=== PATIENT | female | born 1955 | race Caucasian/White ===

== ENCOUNTER 2016-04-18 10:17 | Outpatient (CLI) | END 2016-04-18 10:18 | disposition home or self-care (01) ==

== ENCOUNTER 2016-04-26 11:02 | Outpatient (CLI) | payer BC | END 2016-04-26 11:03 | disposition home or self-care (01) | DX: C54.1 Malignant neoplasm of endometrium (principal) ==

== ENCOUNTER 2016-04-29 | Outpatient (CLI) | payer BC, MEDICAID | END 2016-04-29 10:38 | disposition critical access hospital (66) | CPT/HCPCS: A0425; A0429 ==

== ENCOUNTER 2016-04-29 11:11 | Inpatient (IN) | payer BC, MEDICAID ==
[2016-04-29] MEDS ORDERED: MORPHINE 2 MG/ML SYRINGE IVP STA (12:46)
[2016-04-29] MEDS ORDERED: MORPHINE 2 MG/ML SYRINGE ONE (13:07)
[2016-04-29] MEDS ORDERED: ONDANSETRON 4 MG/2 ML VIAL ONE (13:13)
[2016-04-29] MEDS ORDERED: ONDANSETRON 4 MG/2 ML VIAL IVP STA (13:13)
[2016-04-29] MEDS ORDERED: IOPAMIDOL-300 100 ML VIAL IVP ONE (15:12)
[2016-04-29] MEDS ORDERED: LORazepam 2 MG/ML SYRINGE IVP STA (16:14)
[2016-04-29] MEDS ORDERED: LORazepam 2 MG/ML SYRINGE ONE (16:18)
[2016-04-29] MEDS ORDERED: AZITHROMYCIN INJ 500 MG in SODIUM CHLORIDE 0.9% 250 ML IV STA (17:00)
[2016-04-29] MEDS ORDERED: cefTRIAXone 1 GM in SODIUM CHLORIDE 0.9% MINIBAG 100 ML IV STA (17:00)
[2016-04-29] MEDS ORDERED: LIDOCAINE/PRILOCAINE 2.5% CREAM 5 GM TUBE TOP PRN (17:02)
[2016-04-29] MEDS ORDERED: PROCHLORPERAZINE 10 MG/2 ML VIAL IVP PRN (17:04)
[2016-04-29] MEDS ORDERED: IBUPROFEN 600 MG TABLET PO PRN (17:04)
[2016-04-29] MEDS ORDERED: LORazepam 1 MG/0.5 ML ORAL SYRINGE PO PRN (17:04)
[2016-04-29] MEDS ORDERED: SODIUM CHLORIDE FLUSH 0.9% 10 ML SYRINGE IVP PRN (17:04)
[2016-04-29] MEDS ORDERED: ACETAMINOPHEN 325 MG TABLET PO PRN (17:04)
[2016-04-29] MEDS ORDERED: cefTRIAXone 1 GM VIAL ONE (17:13)
[2016-04-29] MEDS ORDERED: ACETAMINOPHEN 160 MG/5 ML SUSP UDC PO PRN (17:53)
[2016-04-29] MEDS ORDERED: IBUPROFEN 100 MG/5 ML UDC PO PRN (17:55)
[2016-04-29] MEDS ORDERED: AZITHROMYCIN INJ 500 MG in SODIUM CHLORIDE 0.9% 250 ML IV SCH (18:00)
[2016-04-29] MEDS: SODIUM CHLORIDE 0.9% 1,000 ML IV SCH (20:02)
[2016-04-29] MEDS ORDERED: diphenhydrAMINE INJ 50 MG/ML VIAL IVP PRN (20:05)
[2016-04-29] MEDS ORDERED: LORazepam 0.5 MG TABLET PO PRN (20:55)
[2016-04-29] MEDS: FUROSEMIDE 40 MG/4 ML VIAL IVP SCH (21:02)
[2016-04-29] MEDS: SODIUM CHLORIDE FLUSH 0.9% 10 ML SYRINGE IVP SCH (21:02)
[2016-04-29] MEDS: ONDANSETRON ODT 4 MG TABLET TL PRN (21:03)
[2016-04-29] MEDS: MORPHINE SOL 10 MG/0.5 ML SYRINGE PO PRN (21:04)
[2016-04-29] MEDS ORDERED: POTASSIUM CHLORIDE INJ 40 MEQ in SODIUM CHLORIDE 0.9% 480 ML IV SCH (23:08)
[2016-04-30] MEDS: POTASSIUM CHLOR 10 MEQ/100 ML 100 ML IV SCH ×4 (01:39→05:08)
[2016-04-30] MEDS: LORazepam 2 MG/ML SYRINGE IVP PRN (05:16)
[2016-04-30] MEDS: SODIUM CHLORIDE 0.9% 1,000 ML IV SCH ×4 (05:25→23:53)
[2016-04-30] MEDS: SODIUM CHLORIDE FLUSH 0.9% 10 ML SYRINGE IVP SCH ×3 (06:25→19:09)
[2016-04-30] MEDS: FUROSEMIDE 40 MG/4 ML VIAL IVP SCH ×2 (06:28→14:38)
[2016-04-30] MEDS ORDERED: POTASSIUM CHLORIDE 20 MEQ TABLET PO SCH (08:00)
[2016-04-30] MEDS: ONDANSETRON ODT 4 MG TABLET TL PRN ×2 (08:45→17:00)
[2016-04-30] MEDS: FAMOTIDINE 20 MG/50 ML 50 ML IV SCH (08:50)
[2016-04-30] MEDS: ENOXAPARIN 40 MG/0.4 ML SYRINGE SUBQ SCH (08:50)
[2016-04-30] MEDS: POLYETHYLENE GLYCOL 3350 17 GM PACKET PO SCH (08:50)
[2016-04-30] MEDS ORDERED: cefTRIAXone 2 GM in SODIUM CHLORIDE 0.9% MINIBAG 100 ML IV SCH (09:00)
[2016-04-30] MEDS: MORPHINE SOL 10 MG/0.5 ML SYRINGE PO PRN ×2 (09:50→17:05)
[2016-04-30] MEDS: cefTRIAXone 2 GM in SODIUM CHLORIDE 0.9% MINIBAG 100 ML IV SCH (10:06)
[2016-04-30] MEDS: AZITHROMYCIN INJ 500 MG in SODIUM CHLORIDE 0.9% 250 ML IV SCH (13:19)
[2016-05-01] MEDS: MORPHINE SOL 10 MG/0.5 ML SYRINGE PO PRN ×3 (00:05→22:59)
[2016-05-01] MEDS: ONDANSETRON ODT 4 MG TABLET TL PRN ×3 (00:08→22:40)
[2016-05-01] MEDS: SODIUM CHLORIDE FLUSH 0.9% 10 ML SYRINGE IVP SCH ×3 (06:22→20:43)
[2016-05-01] MEDS: FUROSEMIDE 40 MG/4 ML VIAL IVP SCH ×2 (06:24→14:20)
[2016-05-01] MEDS: FAMOTIDINE 20 MG/50 ML 50 ML IV SCH (08:27)
[2016-05-01] MEDS ORDERED: SENNA 8.6 MG TABLET PO SCH (09:00)
[2016-05-01] MEDS: cefTRIAXone 2 GM in SODIUM CHLORIDE 0.9% MINIBAG 100 ML IV SCH (09:22)
[2016-05-01] MEDS: DOCUSATE SODIUM 250 MG CAPSULE PO SCH ×2 (09:22→15:08)
[2016-05-01] MEDS: ENOXAPARIN 40 MG/0.4 ML SYRINGE SUBQ SCH (09:26)
[2016-05-01] MEDS: POLYETHYLENE GLYCOL 3350 17 GM PACKET PO SCH ×2 (09:27→15:09)
[2016-05-01] MEDS: SODIUM CHLORIDE 0.9% 1,000 ML IV SCH ×2 (09:28→21:06)
[2016-05-01] MEDS: AZITHROMYCIN INJ 500 MG in SODIUM CHLORIDE 0.9% 250 ML IV SCH (10:20)
[2016-05-01] MEDS: diphenhydrAMINE ELIXIR 25 MG/10 ML UDC PO SCH ×3 (14:20→21:14)
[2016-05-01] MEDS: POTASSIUM CHLORIDE 20 MEQ/15 ML UDC PO SCH (16:43)
[2016-05-01] MEDS: POTASSIUM CHLOR 10 MEQ/100 ML 100 ML IV SCH ×6 (19:23→23:52)
[2016-05-02] MEDS: SODIUM CHLORIDE FLUSH 0.9% 10 ML SYRINGE IVP SCH ×3 (01:14→20:16)
[2016-05-02] MEDS: ONDANSETRON ODT 4 MG TABLET TL PRN ×4 (04:26→20:16)
[2016-05-02] MEDS: MORPHINE SOL 10 MG/0.5 ML SYRINGE PO PRN ×3 (04:50→22:03)
[2016-05-02] MEDS: FUROSEMIDE 40 MG/4 ML VIAL IVP SCH ×2 (06:21→13:24)
[2016-05-02] MEDS: SODIUM CHLORIDE 0.9% 1,000 ML IV SCH (06:22)
[2016-05-02] MEDS: ENOXAPARIN 40 MG/0.4 ML SYRINGE SUBQ SCH (07:37)
[2016-05-02] MEDS: FAMOTIDINE 20 MG/50 ML 50 ML IV SCH (08:06)
[2016-05-02] MEDS: cefTRIAXone 2 GM in SODIUM CHLORIDE 0.9% MINIBAG 100 ML IV SCH (08:37)
[2016-05-02] MEDS: diphenhydrAMINE ELIXIR 25 MG/10 ML UDC PO SCH ×4 (09:49→20:16)
[2016-05-02] MEDS: AZITHROMYCIN INJ 500 MG in SODIUM CHLORIDE 0.9% 250 ML IV SCH (09:50)
[2016-05-02] MEDS: POTASSIUM CHLORIDE 20 MEQ/15 ML UDC PO SCH (10:04)
[2016-05-02] MEDS: POLYETHYLENE GLYCOL 3350 17 GM PACKET PO SCH (13:28)
[2016-05-02] MEDS: DOCUSATE SODIUM 250 MG CAPSULE PO SCH (13:28)
[2016-05-02] MEDS: POTASSIUM CHLOR 10 MEQ/100 ML 100 ML IV SCH ×6 (16:11→23:43)
[2016-05-02] MEDS: LORazepam 2 MG/ML SYRINGE IVP PRN (22:33)
[2016-05-03] MEDS: POTASSIUM CHLOR 10 MEQ/100 ML 100 ML IV SCH ×2 (00:47→01:53)
[2016-05-03] MEDS: SODIUM CHLORIDE FLUSH 0.9% 10 ML SYRINGE IVP SCH ×3 (01:19→21:18)
[2016-05-03] MEDS ORDERED: POTASSIUM CHLOR 10 MEQ/100 ML 100 ML IV ONE (01:51)
[2016-05-03] MEDS: SODIUM CHLORIDE 0.9% 1,000 ML IV SCH ×4 (02:02→18:15)
[2016-05-03] MEDS: MORPHINE SOL 10 MG/0.5 ML SYRINGE PO PRN (05:35)
[2016-05-03] MEDS: ONDANSETRON ODT 4 MG TABLET TL PRN ×4 (05:36→23:53)
[2016-05-03] MEDS: FUROSEMIDE 40 MG/4 ML VIAL IVP SCH ×2 (05:57→14:56)
[2016-05-03] MEDS: FAMOTIDINE 20 MG/50 ML 50 ML IV SCH (08:13)
[2016-05-03] MEDS: cefTRIAXone 2 GM in SODIUM CHLORIDE 0.9% MINIBAG 100 ML IV SCH (09:17)
[2016-05-03] MEDS: POTASSIUM CHLORIDE 20 MEQ/15 ML UDC PO SCH (09:49)
[2016-05-03] MEDS: POLYETHYLENE GLYCOL 3350 17 GM PACKET PO SCH (09:50)
[2016-05-03] MEDS: DOCUSATE SODIUM 250 MG CAPSULE PO SCH (09:50)
[2016-05-03] MEDS: SENNA 8.6 MG TABLET PO SCH (09:50)
[2016-05-03] MEDS: diphenhydrAMINE ELIXIR 25 MG/10 ML UDC PO SCH ×4 (09:51→20:56)
[2016-05-03] MEDS: AZITHROMYCIN INJ 500 MG in SODIUM CHLORIDE 0.9% 250 ML IV SCH (09:57)
[2016-05-03] MEDS: ENOXAPARIN 40 MG/0.4 ML SYRINGE SUBQ SCH (09:58)
[2016-05-03] MEDS: POTASS CIT/CITRIC ACID ORAL 1 EACH PACKET PO SCH ×4 (10:40→20:56)
[2016-05-03] MEDS ORDERED: BISACODYL 10 MG SUPP PR ONE ×2 (12:45→19:00)
[2016-05-03] MEDS ORDERED: ALBUTEROL NEB 2.5 MG/3 ML INH PRN (18:15)
[2016-05-03] MEDS ORDERED: FUROSEMIDE 20 MG/2 ML VIAL IVP SCH (19:00)
[2016-05-03] MEDS: LORazepam 2 MG/ML SYRINGE IVP PRN (20:43)
[2016-05-03] MEDS: MAGNESIUM SULFATE 2 GRAM 50 ML IV SCH ×2 (21:13→22:19)
[2016-05-03] MEDS: MAG HYDROX/AL HYDROX/SIMETH 30 ML UDC PO PRN (21:13)
[2016-05-03] MEDS: POTASSIUM CHLOR 20 MEQ/100 ML 100 ML IV SCH (22:19)
[2016-05-04] MEDS: POTASSIUM CHLOR 20 MEQ/100 ML 100 ML IV SCH ×6 (00:01→17:53)
[2016-05-04] MEDS: MORPHINE SOL 10 MG/0.5 ML SYRINGE PO PRN ×3 (00:08→22:31)
[2016-05-04] MEDS: SODIUM CHLORIDE FLUSH 0.9% 10 ML SYRINGE IVP SCH ×4 (03:53→23:33)
[2016-05-04] MEDS ORDERED: MAGNESIUM SULFATE 2 GRAM 50 ML IV SCH (04:00)
[2016-05-04] MEDS: POTASSIUM CHLOR 10 MEQ/100 ML 100 ML IV SCH ×8 (04:46→21:20)
[2016-05-04] MEDS: ONDANSETRON ODT 4 MG TABLET TL PRN ×2 (06:42→11:05)
[2016-05-04] MEDS: POLYETHYLENE GLYCOL 3350 17 GM PACKET PO SCH (08:40)
[2016-05-04] MEDS: ENOXAPARIN 40 MG/0.4 ML SYRINGE SUBQ SCH (08:41)
[2016-05-04] MEDS: DOCUSATE SODIUM 250 MG CAPSULE PO SCH (08:44)
[2016-05-04] MEDS: diphenhydrAMINE ELIXIR 25 MG/10 ML UDC PO SCH ×4 (08:44→21:19)
[2016-05-04] MEDS: SENNA 8.6 MG TABLET PO SCH (08:45)
[2016-05-04] MEDS: FAMOTIDINE 20 MG/50 ML 50 ML IV SCH (09:29)
[2016-05-04] MEDS: cefTRIAXone 2 GM in SODIUM CHLORIDE 0.9% MINIBAG 100 ML IV SCH (10:22)
[2016-05-04] MEDS: AZITHROMYCIN INJ 500 MG in SODIUM CHLORIDE 0.9% 250 ML IV SCH (11:05)
[2016-05-04] MEDS: POTASS CIT/CITRIC ACID ORAL 1 EACH PACKET PO SCH ×4 (11:10→21:19)
[2016-05-04] MEDS: POTASSIUM CHLORIDE 20 MEQ/15 ML UDC PO SCH (11:12)
[2016-05-04] MEDS: MAG HYDROX/AL HYDROX/SIMETH 30 ML UDC PO PRN (17:49)
[2016-05-04] MEDS: SODIUM CHLORIDE 0.9% 1,000 ML IV SCH (21:19)
[2016-05-04] MEDS: ONDANSETRON 4 MG/2 ML VIAL IVP PRN (22:19)
[2016-05-05] MEDS: LORazepam 2 MG/ML SYRINGE IVP PRN (01:17)
[2016-05-05] MEDS ORDERED: LORazepam 2 MG/ML SYRINGE IVP STA (01:34)
[2016-05-05] MEDS: IPRATROPIUM/ALBUTEROL 3 ML NEB INH PRN ×2 (01:35→10:00)
[2016-05-05] MEDS ORDERED: LORazepam 2 MG/ML SYRINGE IVP SCH (01:55)
[2016-05-05] MEDS: ENOXAPARIN 40 MG/0.4 ML SYRINGE SUBQ SCH (07:16)
[2016-05-05] MEDS: DOCUSATE SODIUM 250 MG CAPSULE PO SCH (08:43)
[2016-05-05] MEDS: SENNA 8.6 MG TABLET PO SCH (08:43)
[2016-05-05] MEDS: POLYETHYLENE GLYCOL 3350 17 GM PACKET PO SCH (08:43)
[2016-05-05] MEDS: diphenhydrAMINE ELIXIR 25 MG/10 ML UDC PO SCH ×4 (08:44→20:05)
[2016-05-05] MEDS: ONDANSETRON 4 MG/2 ML VIAL IVP PRN (08:54)
[2016-05-05] MEDS: FAMOTIDINE 20 MG/50 ML 50 ML IV SCH (08:55)
[2016-05-05] MEDS: cefTRIAXone 2 GM in SODIUM CHLORIDE 0.9% MINIBAG 100 ML IV SCH (09:52)
[2016-05-05] MEDS: AZITHROMYCIN INJ 500 MG in SODIUM CHLORIDE 0.9% 250 ML IV SCH (10:22)
[2016-05-05] MEDS: MAG HYDROX/AL HYDROX/SIMETH 30 ML UDC PO PRN (10:22)
[2016-05-05] MEDS: METOCLOPRAMIDE 10 MG/2 ML VIAL IVP PRN ×3 (11:20→23:39)
[2016-05-05] MEDS: POTASS CIT/CITRIC ACID ORAL 1 EACH PACKET PO SCH ×4 (13:03→20:07)
[2016-05-05] MEDS: SODIUM CHLORIDE FLUSH 0.9% 10 ML SYRINGE IVP SCH ×2 (13:47→20:07)
[2016-05-05] MEDS: MORPHINE SOL 10 MG/0.5 ML SYRINGE PO PRN ×2 (18:33→23:43)
[2016-05-05] MEDS: SODIUM CHLORIDE 0.9% 1,000 ML IV SCH (18:34)
[2016-05-06] MEDS: IPRATROPIUM/ALBUTEROL 3 ML NEB INH PRN ×2 (04:43→22:23)
[2016-05-06] MEDS: SODIUM CHLORIDE FLUSH 0.9% 10 ML SYRINGE IVP SCH ×3 (05:34→16:48)
[2016-05-06] MEDS: METOCLOPRAMIDE 10 MG/2 ML VIAL IVP PRN ×3 (07:35→20:18)
[2016-05-06] MEDS: FAMOTIDINE 20 MG/50 ML 50 ML IV SCH (09:22)
[2016-05-06] MEDS: DOCUSATE SODIUM 250 MG CAPSULE PO SCH (09:37)
[2016-05-06] MEDS: SENNA 8.6 MG TABLET PO SCH (09:37)
[2016-05-06] MEDS: cefTRIAXone 2 GM in SODIUM CHLORIDE 0.9% MINIBAG 100 ML IV SCH (10:04)
[2016-05-06] MEDS: ENOXAPARIN 40 MG/0.4 ML SYRINGE SUBQ SCH (10:04)
[2016-05-06] MEDS: MORPHINE SOL 10 MG/0.5 ML SYRINGE PO PRN ×2 (10:52→22:07)
[2016-05-06] MEDS: POTASS CIT/CITRIC ACID ORAL 1 EACH PACKET PO SCH ×4 (11:45→20:26)
[2016-05-06] MEDS: POLYETHYLENE GLYCOL 3350 17 GM PACKET PO SCH (11:45)
[2016-05-06] MEDS: diphenhydrAMINE ELIXIR 25 MG/10 ML UDC PO SCH ×4 (11:45→20:26)
[2016-05-06] MEDS: SODIUM CHLORIDE 0.9% 1,000 ML IV SCH (14:11)
[2016-05-06] MEDS: SIMETHICONE 125 MG PO PRN (20:19)
[2016-05-06] MEDS: LORazepam 2 MG/ML SYRINGE IVP PRN (22:08)
[2016-05-07] MEDS: SODIUM CHLORIDE 0.9% 1,000 ML IV SCH ×2 (03:26→06:04)
[2016-05-07] MEDS: LORazepam 2 MG/ML SYRINGE IVP PRN ×2 (03:32→21:45)
[2016-05-07] MEDS: SODIUM CHLORIDE FLUSH 0.9% 10 ML SYRINGE IVP SCH ×3 (06:01→21:53)
[2016-05-07] MEDS ORDERED: SODIUM CHLORIDE FLUSH 0.9% 10 ML SYRINGE IVP PRN (06:27)
[2016-05-07] MEDS: METOCLOPRAMIDE 10 MG/2 ML VIAL IVP PRN ×3 (06:39→21:47)
[2016-05-07] MEDS: diphenhydrAMINE ELIXIR 25 MG/10 ML UDC PO SCH ×4 (08:01→21:46)
[2016-05-07] MEDS: DOCUSATE SODIUM 250 MG CAPSULE PO SCH (08:01)
[2016-05-07] MEDS: SENNA 8.6 MG TABLET PO SCH (08:01)
[2016-05-07] MEDS: POTASS CIT/CITRIC ACID ORAL 1 EACH PACKET PO SCH ×4 (08:01→21:53)
[2016-05-07] MEDS ORDERED: POTASSIUM CHLORIDE 20 MEQ TABLET PO ONE (08:45)
[2016-05-07] MEDS ORDERED: MAGNESIUM OXIDE 400 MG TABLET PO ONE (09:00)
[2016-05-07] MEDS: FAMOTIDINE 20 MG/50 ML 50 ML IV SCH (09:02)
[2016-05-07] MEDS: SIMETHICONE 125 MG PO PRN ×3 (09:05→21:48)
[2016-05-07] MEDS: cefTRIAXone 2 GM in SODIUM CHLORIDE 0.9% MINIBAG 100 ML IV SCH (10:18)
[2016-05-07] MEDS: ENOXAPARIN 40 MG/0.4 ML SYRINGE SUBQ SCH (10:19)
[2016-05-07] MEDS: IPRATROPIUM/ALBUTEROL 3 ML NEB INH PRN (10:35)
[2016-05-07] MEDS: POLYETHYLENE GLYCOL 3350 17 GM PACKET PO SCH (12:19)
[2016-05-07] MEDS: ONDANSETRON 4 MG/2 ML VIAL IVP PRN ×2 (12:19→16:30)
[2016-05-07] MEDS: MORPHINE SOL 10 MG/0.5 ML SYRINGE PO PRN ×2 (16:21→21:46)
[2016-05-08] MEDS: SODIUM CHLORIDE 0.9% 1,000 ML IV SCH (02:58)
[2016-05-08] MEDS: METOCLOPRAMIDE 10 MG/2 ML VIAL IVP PRN (06:11)
[2016-05-08] MEDS: SODIUM CHLORIDE FLUSH 0.9% 10 ML SYRINGE IVP SCH ×3 (06:12→13:52)
[2016-05-08] MEDS ORDERED: BISACODYL 10 MG SUPP PR PRN (06:45)
[2016-05-08] MEDS: ONDANSETRON 4 MG/2 ML VIAL IVP PRN (08:07)
[2016-05-08] MEDS: FAMOTIDINE 20 MG/50 ML 50 ML IV SCH (08:13)
[2016-05-08] MEDS: diphenhydrAMINE ELIXIR 25 MG/10 ML UDC PO SCH ×2 (10:35→14:02)
[2016-05-08] MEDS: POTASS CIT/CITRIC ACID ORAL 1 EACH PACKET PO SCH ×2 (10:36→11:56)
[2016-05-08] MEDS: SENNA 8.6 MG TABLET PO SCH (10:36)
[2016-05-08] MEDS: DOCUSATE SODIUM 250 MG CAPSULE PO SCH (10:36)
[2016-05-08] MEDS: POLYETHYLENE GLYCOL 3350 17 GM PACKET PO SCH (10:37)
[2016-05-08] MEDS: ENOXAPARIN 40 MG/0.4 ML SYRINGE SUBQ SCH (10:39)
[2016-05-08] MEDS: SIMETHICONE 125 MG PO PRN (10:40)
[2016-05-08] MEDS ORDERED: LORazepam 1 MG/0.5 ML ORAL SYRINGE PO PRN (10:42)
[2016-05-08] MEDS ORDERED: MORPHINE SOL 10 MG/0.5 ML SYRINGE PO PRN (10:42)
[2016-05-08] MEDS ORDERED: MORPHINE 10 MG/ML VIAL IVP ONE (11:00)
[2016-05-08] MEDS ORDERED: LORazepam 2 MG/ML SYRINGE IVP ONE (11:30)
[2016-05-08] MEDS: MORPHINE SOL 10 MG/0.5 ML SYRINGE PO PRN (15:40)
== END 2016-05-08 16:00 | disposition home health service (06) | DRG 193 ==
DX: J18.9 Pneumonia, unspecified organism (principal); D61.810 Antineoplastic chemotherapy induced pancytopenia; C78.6 Secondary malignant neoplasm of retroperitoneum and peritoneum; R18.0 Malignant ascites; Z68.42 Body mass index [BMI] 45.0-49.9, adult; E86.0 Dehydration; E87.6 Hypokalemia; R62.7 Adult failure to thrive; C54.1 Malignant neoplasm of endometrium; R59.0 Localized enlarged lymph nodes; R11.2 Nausea with vomiting, unspecified; T50.3X5A Adverse effect of electrolytic, caloric and water-balance agents, initial encounter; Y92.239 Unspecified place in hospital as the place of occurrence of the external cause; E66.01 Morbid (severe) obesity due to excess calories; F42.9 Obsessive-compulsive disorder, unspecified; F41.8 Other specified anxiety disorders; K59.09 Other constipation; G62.9 Polyneuropathy, unspecified; T45.1X5A Adverse effect of antineoplastic and immunosuppressive drugs, initial encounter; Z66 Do not resuscitate; Z51.5 Encounter for palliative care

== ENCOUNTER 2016-08-06 15:30 | Outpatient (CLI) | payer MEDICAID | END 2016-08-06 15:31 | disposition home or self-care (01) | DX: J90 Pleural effusion, not elsewhere classified (principal); J98.4 Other disorders of lung ==

== ENCOUNTER 2016-09-11 14:35 | Outpatient (CLI) | payer MEDICAID ==
--- NOTE | 2016-09-11 16:35 | Ultrasound Report ---
RIGHT UPPER QUADRANT ULTRASOUND: 09/11/2016 CLINICAL INDICATION: Pain. COMPARISON: CT of 04/29/2016. TECHNIQUE: Real-time scanning was performed with membership sales representative static images obtained. FINDINGS: The liver measures 13.3 cm. Hepatic echogenicity is heterogeneous. Tiny cysts are noted. N o solid hepatic lesion or intrahepatic biliary dilatation is seen. The common bile duct measures 2 mm . The gallbladder demonstrates multiple shadowing stones. A small amount of ascites is noted. A right pleural effusion is incidentally noted. The right kidney measures 9.7 cm, and demonstrates no hydron ephrosis. IMPRESSION: CHOLELITHIASIS, WITHOUT EVIDENCE OF BILIARY OBSTRUCTION. HETEROGENEOUS HEPATIC ECHOGENIC ITY, LIKELY REPRESENTING FATTY INFILTRATION. ASCITES AND RIGHT PLEURAL EFFUSION. JOB #: [id number] EXT JOB #:[id number]
== END 2016-09-11 14:36 | disposition home or self-care (01) ==
LOC: DI 14:35
PROVIDERS: ATTEND Internal Medicine
DX: K80.20 Calculus of gallbladder without cholecystitis without obstruction (principal); R18.8 Other ascites; J90 Pleural effusion, not elsewhere classified
CPT/HCPCS: 76705

== ENCOUNTER 2016-09-24 06:59 | Outpatient (CLI) | payer MEDICAID | END 2016-09-24 07:00 | disposition EMS.NT | LOC: EMS 06:59 | PROVIDERS: ATTEND Surgery | DX: Z03.89 Encounter for observation for other suspected diseases and conditions ruled out (principal) ==

== ENCOUNTER 2016-10-15 03:20 | Outpatient (CLI) | payer MEDICAID | END 2016-10-15 03:21 | disposition critical access hospital (66) | DX: R53.1 Weakness (principal); R60.0 Localized edema; R10.11 Right upper quadrant pain | CPT/HCPCS: A0425; A0429 ==

== ENCOUNTER 2016-10-15 03:56 | Inpatient (IN) | payer MEDICAID ==
--- NOTE | 2016-10-15 04:27 | ED Physician Documentation ---
History of Present Illness - Stated complaint Stated Complaint: WEAKNESS, CA - Chief complaint Chief Complaint: Cardiac - History obtained from History obtained from: Patient, Family - History of Present Illness Timing: Today Improved by: no ameliorating factors Worsened by: no exacerbating factors - Additonal information Additional information: patient has metastatic ovarian CA. She presents with the chief complaint of generalized weakness which has been gradually worsening for several weeks but tonight she was unable to stand up out of her chair, even with assistance from her daughter (who has moved from [place] to care for this patient). Patient has several other c/o which are subacute but generally worsening (BLE edema, poor appetite, nausea with difficulty tolerating PO intake, abdominal distension, dyspnea). Review of Systems Constitutional: reports: Fatigue. denies: Fever Eyes: reports: Reviewed and negative Ears: reports: Reviewed and negative Nose: reports: Reviewed and negative Throat: reports: Reviewed and negative Cardiac: reports: Pedal edema. denies: Chest pain / pressure Respiratory: reports: Dyspnea. denies: Cough GI: reports: Abdominal Pain, Abdominal Swelling, Nausea, Vomiting, Constipation : denies: Dysuria, Frequency Skin: reports: Reviewed and negative Musculoskeletal: reports: Reviewed and negative Neurologic: reports: Generalized weakness. denies: Focal weakness, Numbness PD PAST MEDICAL HISTORY - Past Medical History Cardiovascular: None Respiratory: None Neuro: None Endocrine/Autoimmune: None GI: None, Ulcers, Chronic constipation QUALITY REP: Uterine cancer : Chronic bladder infection HEENT: Chronic vision loss Psych: Anxiety, Obsessive compulsive disorder Musculoskeletal: Other - Past Surgical History Past Surgical History: Yes /QUALITY REP: Dilation and currettage, Hysterectomy, Oophrectomy, Other - Present Medications Home Medications: Ambulatory Orders Medication Instructions Recorded Confirmed Morphine Sulfate [Morphine Sulfate 10 mg PO Q1H PRN #30 ml 05/08/16 10/15/16 Oral Solution (Roxanol)] Dextromethorphan Polistirex 30 mg ORAL BID PRN 10/15/16 10/15/16 [Delsym] Ibuprofen [Advil] 100 mg ORAL Q6H PRN 10/15/16 10/15/16 Loratadine [Claritin] 5 mg ORAL Q12H 10/15/16 10/15/16 Lorazepam [Lorazepam Intensol] 2 mg PO Q6H PRN 10/15/16 10/15/16 Simethicone [Gas-X] 125 mg ORAL TID 10/15/16 10/15/16 - Allergies Allergies/Adverse Reactions: Allergies Allergy/AdvReac Type Severity Reaction Status Date / Time Penicillins Allergy Unknown Verified 10/15/16 04:06 sulfamethoxazole Allergy Rash Verified 10/15/16 04:06 [From Bactrim] trimethoprim [From Bactrim] Allergy Rash Verified 10/15/16 04:06 dexamethasone sod phosphate * AdvReac Respiratory Verified 10/15/16 04:06 [From Decadron] nitrofurantoin AdvReac Headache Verified 10/15/16 04:06 macrocrystalline * [From Macrodantin] paclitaxel AdvReac Unknown Verified 10/15/16 04:06 Tetracyclines AdvReac Nausea Verified 10/15/16 04:06 - Social History Does the pt smoke?: No Smoking Status: Never smoker Does the pt drink ETOH?: No Does the pt have substance abuse?: No - Immunizations Immunizations are current?: Yes PD ED PE NORMAL - Vitals Vital signs reviewed: Yes - General General: Alert and oriented X 3, No acute distress, Well developed/nourished - HEENT HEENT: Moist mucous membranes - Neck Neck: Supple, no meningeal sign - Cardiac Cardiac: RRR, No murmur - Respiratory Respiratory: No respiratory distress, Other (bibasilar rales) - Abdomen Abdomen: Soft, Non tender - Derm Derm: Normal color, Warm and dry - Neuro Neuro: Alert and oriented X 3 PD ED PE EXPANDED - Abdomen Abdomen: Distended - Extremities Extremities: Pedal edema bilateral Results - Vitals Vitals: Vital Signs - 24 hr 10/15/16 10/15/16 03:58 05:40 Temperature 36.4 C L Heart Rate 105 H 103 H Respiratory 20 18 Rate Blood Pressure 144/95 H 106/83 H O2 Saturation 98 98 Oxygen O2 Source Room air - Labs Labs: Laboratory Tests 10/15/16 10/15/16 10/15/16 05:20 05:20 05:20 WBC 6.3 RBC 3.89 L Hgb 11.8 L Hct 34.7 L MCV 89.2 MCH 30.4 MCHC 34.1 RDW 18.1 H Plt Count 147 MPV 8.6 Neut # 4.3 Lymph # 0.4 L Pierce # 1.3 H Eos # 0.1 Baso # 0.1 Absolute Nucleated RBC 0.00 Nucleated RBCs 0.0 Sodium 136 Potassium 3.7 Chloride 99 L Carbon Dioxide 25 Anion Gap 12.0 BUN 52 H Creatinine 2.3 H Estimated GFR (MDRD) 22 L Glucose 96 Calcium 8.8 Total Bilirubin 0.8 AST 91 H ALT 36 Alkaline Phosphatase 116 B-Natriuretic Peptide 37 Total Protein 6.1 L Albumin 2.6 L Globulin 3.5 Albumin/Globulin Ratio 0.7 L Prealbumin Lipase 33 TSH 10/15/16 10/15/16 05:20 05:20 WBC RBC Hgb Hct MCV MCH MCHC RDW Plt Count MPV Neut # Lymph # Pierce # Eos # Baso # Absolute Nucleated RBC Nucleated RBCs Sodium Potassium Chloride Carbon Dioxide Anion Gap BUN Creatinine Estimated GFR (MDRD) Glucose Calcium Total Bilirubin AST ALT Alkaline Phosphatase B-Natriuretic Peptide Total Protein Albumin Globulin Albumin/Globulin Ratio Prealbumin 6 L Lipase TSH 4.52 - Rads (name of study) chest xray Radiology: Prelim report reviewed, See rad report PD MEDICAL DECISION MAKING - ED course Complexity details: reviewed old records, reviewed results, re-evaluated patient , considered differential, d/w patient, d/w family Departure - Departure Disposition: ED Place in Observation Clinical Impression: Muscle weakness, Abdominal bloating Condition: Stable Discharge Date/Time: 10/15/16 06:52
--- NOTE | 2016-10-15 05:39 | XRAY Preliminary Report ---
Exam: XR Chest 1 View IMPRESSION: 1. Mild pulmonary edema. 2. Moderate bibasilar effusions and atelectasis. 3. Mediastinal metastatic adenopathy. [facility] SITE ID: [id number]
--- NOTE | 2016-10-15 05:41 | XRAY Report ---
EXAM: CHEST RADIOGRAPHY EXAM DATE: 10/15/2016 05:19 AM. CLINICAL HISTORY: Dyspnea. COMPARISON: 08/06/2016, CT 04/29/2016. TECHNIQUE: 1 view. FINDINGS: Lungs/Pleura: Mild pulmonary edema with effusions and basilar atelectasis. Mediastinum: Mediastinal adenopathy present. Heart size obscured but likely normal as before. Other: None. IMPRESSION: 1. Mild pulmonary edema. 2. Moderate bibasilar effusions and atelectasis. 3. Mediastinal metastatic adenopathy. [facility] Referring Provider Line: [phone] SITE ID: [id number]
[2016-10-15 05:42] LABS: BASOPHILS # (AUTO) 0.1 10^3/uL (0.0-0.1); BASOPHILS % (AUTO) 1.8 %; EOSINOPHILS # (AUTO) 0.1 10^3/uL (0.0-0.7); EOSINOPHILS % (AUTO) 1.3 %; HCT - HEMATOCRIT 34.7 % (37.0-47.0); HGB - HEMOGLOBIN 11.8 g/dL (12.0-16.0); LYMPHOCYTES # (AUTO) 0.4 10^3/uL (1.5-3.5); LYMPHOCYTES % (AUTO) 5.9 %; MEAN CORPUSCULAR HEMOGLOBIN 30.4 pg (27.0-31.0); MEAN CORPUSCULAR HGB CONC 34.1 g/dL (32.0-36.0); MEAN CORPUSCULAR VOLUME 89.2 fL (81.0-99.0); MEAN PLATELET VOLUME 8.6 fL (7.9-10.8); MONOCYTES # (AUTO) 1.3 10^3/uL (0.0-1.0); MONOCYTES % (AUTO) 21.4 %; NEUTROPHILS # (AUTO) 4.3 10^3/uL (1.5-6.6); NEUTROPHILS % (AUTO) 69.6 %; RED BLOOD COUNT 3.89 10^6/uL (4.20-5.40); RED CELL DISTRIBUTION WIDTH 18.1 % (12.0-15.0); UNCORRECTED WHITE BLOOD COUNT 6.3 x10^3/uL; WHITE BLOOD COUNT 6.3 x10^3/uL (4.8-10.8)
[2016-10-15 05:48] LABS: ALBUMIN/GLOBULIN RATIO 0.7 (1.0-2.2); BILIRUBIN,TOTAL 0.8 mg/dL (0.2-1.0); CALCIUM 8.8 mg/dL (8.5-10.3); CREATININE 2.3 mg/dL (0.4-1.0); POTASSIUM 3.7 mmol/L (3.5-5.0); TOTAL PROTEIN 6.1 g/dL (6.7-8.2)
[2016-10-15] MEDS ORDERED: ONDANSETRON 4 MG/2 ML VIAL IVP STA (05:49)
[2016-10-15] MEDS ORDERED: MORPHINE 2 MG/ML SYRINGE IVP STA (05:49)
[2016-10-15] MEDS ORDERED: MORPHINE 2 MG/ML SYRINGE ONE (05:51)
[2016-10-15] MEDS ORDERED: SODIUM CHLORIDE FLUSH 0.9% 10 ML SYRINGE IVP ONE (05:51)
[2016-10-15] MEDS ORDERED: ONDANSETRON 4 MG/2 ML VIAL ONE (05:51)
[2016-10-15] MEDS ORDERED: LORazepam 2 MG/ML SYRINGE IVP STA (05:58)
[2016-10-15] MEDS ORDERED: LORazepam 2 MG/ML SYRINGE ONE (06:04)
[2016-10-15] MEDS ORDERED: PROCHLORPERAZINE 10 MG/2 ML VIAL IVP PRN (06:07)
[2016-10-15] MEDS ORDERED: ACETAMINOPHEN 325 MG TABLET PO PRN (06:07)
--- NOTE | 2016-10-15 07:06 | HISTORY & PHYSICAL EXAMINATION ---
Chief Complaint - Chief Complaint Chief Complaint: Generalized Weakness History of Present Illness - Admitted From Admitted From:: Emergency Department - History Obtained From Records Reviewed: Yes History obtained from: Patient and daughter Exam Limitations: None - History of Present Illness HPI Comment/Other: Patient is an unfortunate 61 year old female with past medical history of recurrent endometrial cancer with ascites and omental caking. Her initial diagnosis was made in 2010 at [facility]. She had her surgery done at [facility] in [place]. She then received chemotherapy in [place] until 01/2011 with a combination of carboplatin and docetaxel. The patient had abdominal lymph node removal surgery in 08/2012 but with negative pathology for residual cancer. She then had recurrence of her cancer in 11/2015 and was receiving chemotherapy until 03/13/2016 but could no longer tolerate treatment and has since stopped chemo. She states over the last several months she has had increasing weakness despite physical therapy working with her at her home. She has had decreasing appetite with worsening nausea and inability to keep very much food down. She states that she has been eating and drinking less than less. She states at the same time she has become weaker and weaker. She states she can barely stand anymore. She has fallen at home multiple times just trying to stand up from her chair. She no longer sleeps in her bed because she is unable to get to it and also unable to tolerate lying flat. She states she also has increasing shortness of breath with exertion and orthopnea which has been gradually worsening for months. She states that she has severely worsening edema in her legs and believes that is why she can no longer stand up. She could not stand at all today when she tried to get up from her chair due to weakness and finally decided to come to the ER. She has no fevers or chills, no new cough, no urinary symptoms or focal deficits. Review of Systems - Constitutional Constitutional: reports: Fatigue, Malaise, Weakness, Poor appetite, Weight loss. denies: Fever, Chills, Diaphoresis, Night sweats - Eyes Eyes: denies: Pain, Irritation, Blurred vision, Spots in vision, Vision loss, Dipolpia - Ears, Nose & Throat Ears, Nose & Throat: denies: Ear pain, Hearing loss, Hearing aids, Vertigo, Nasal pain, Nasal discharge, Nasal obstruction, Nasal congestion, Sore throat, Hoarseness, Mouth lesions - Cardiovascular Cariovascular: reports: Edema, Lightheadedness, Exertional dyspnea, Decr. exercise tolerance, Orthopnea. denies: Irregular heart rate, Palpitations, Chest pain, Syncope - Respiratory Respiratory: reports: Orthopnea, SOB at rest, SOB with exertion. denies: Cough , Sputum production, Wheezing, Hemoptysis, Apnea, Pleuritic pain - Gastrointestinal Gastrointestinal: reports: Abdominal distention, Constipation, Nausea, Vomiting , Bloating, Poor appetite. denies: Abdominal pain, Diarrhea, Rectal bleeding, Black stools, Bloody stools, Bile emesis, Rufus blood emesis, Coffee grounds emesis - Genitourinary Genitourinary: denies: Dysuria, Frequency, Urgency, Hematuria, Flank pain - Musculoskeletal Musculoskeletal: reports: Muscle weakness. denies: Muscle pain, Back pain, Muscle aches, Stiffness, Limited range of motion, Joint pain, Joint swelling - Integumentary Integumentary: reports: Rash. denies: Dryness, Hair changes - Neurological Neurological: reports: General weakness. denies: Focal weakness, Headache, Numbness, Seizures, Slurred speech - Psychiatric Psychiatric: reports: Depression, Anxiety. denies: Suicidal - Endocrine Endocrine: denies: Polyuria, Polydypsia, Polyphagia, Intolerance to cold, Intolerance to heat - Hematologic/Lymphatic Hematologic/Lymphatic: reports: Lymphadenopathy. denies: Anemia, Bruising, Petechiae History - Past Medical History Cardiovascular: reports: None Respiratory: reports: None Neuro: reports: None Endocrine/Autoimmune: reports: None GI: reports: None, Ulcers, Chronic constipation NURSE SPECIAL: reports: Uterine cancer : reports: Chronic bladder infection HEENT: reports: Chronic vision loss Psych: reports: Anxiety, Obsessive compulsive disorder Musculoskeletal: reports: Other MRSA Hx?: No Other Past Medical History: 1. Recurrent endometrial carcinoma with ascites and omental caking. 2. OCD/Anxiety. 3. Progression of endometrial cancer with extensive large retroperioneal metastasis, new left lower quadrant mesenteric lymphadenopathy causing mass effect of the IVC, retrocrural lymphandenopathy, and retroperitoneal periarotic lymphadnenopathy increasing from her previous metastasis. Also concerning for metastasis in the lungs. 4. Morbid Obesity. 5. Failure to thrive - Past Surgical History /NURSE SPECIAL: reports: Dilation and currettage, Hysterectomy, Oophrectomy, Other - Family & Social History Family History: Mother: , Diabetes, Type 2, Obesity, Father: Alive and Well (Dementia ) Living arrangement: At home Living Situation: With family Social History Notes: The patient lives in [place]. She previously on disability due to her anxiety; however after her initial diagnosis of cancer, she was able to get her life together. 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 The pateint has 1 daughter who is 34 and is a interpretative dancer. The patient is , was for 22 years. The patient has never smoked, does not drink alcohol. Denies any illict drug use. - Substance History Use: Uses substance without health or social issues: NONE Abuse: Recurrent use of substance despite neg consequences: NONE Dependence: Experiences withdrawal or developed tolerances: NONE - POLST Patient has POLST: Yes POLST Status: DNR Meds/Allgy - Home Medications Home Medications: Ambulatory Orders Medication Instructions Recorded Confirmed Morphine Sulfate [Morphine Sulfate 10 mg PO Q1H PRN #30 ml 05/08/16 10/15/16 Oral Solution (Roxanol)] Dextromethorphan Polistirex 30 mg ORAL BID PRN 10/15/16 10/15/16 [Delsym] Ibuprofen [Advil] 100 mg ORAL Q6H PRN 10/15/16 10/15/16 Loratadine [Claritin] 5 mg ORAL Q12H 10/15/16 10/15/16 Lorazepam [Lorazepam Intensol] 2 mg PO Q6H PRN 10/15/16 10/15/16 Simethicone [Gas-X] 125 mg ORAL TID 10/15/16 10/15/16 - Allergies Allergies/Adverse Reactions: Allergies Allergy/AdvReac Type Severity Reaction Status Date / Time Penicillins Allergy Unknown Verified 10/15/16 04:06 sulfamethoxazole Allergy Rash Verified 10/15/16 04:06 [From Bactrim] trimethoprim [From Bactrim] Allergy Rash Verified 10/15/16 04:06 dexamethasone sod phosphate * AdvReac Respiratory Verified 10/15/16 04:06 [From Decadron] nitrofurantoin AdvReac Headache Verified 10/15/16 04:06 macrocrystalline * [From Macrodantin] paclitaxel AdvReac Unknown Verified 10/15/16 04:06 Tetracyclines AdvReac Nausea Verified 10/15/16 04:06 Exam - Vital Signs Reviewed Vital Signs: Yes Vital Signs: Vital Signs x48h Temp Pulse Resp BP Pulse Ox 10/15/16 06:25 100 20 97/60 99 10/15/16 05:40 103 H 18 106/83 H 98 10/15/16 03:58 36.4 C L 105 H 20 144/95 H 98 - Physical Exam General Appearance: positive: Alert, Moderate distress (very weak with anasarca) Eyes Bilateral: positive: Normal inspection, PERRL, EOMI, No lid inflammation, Conjunctivae nml, No scleral icterus ENT: positive: ENT inspection nml, Pharynx nml, Dry mucous membranes. negative : Purulent nasal drainage, Pharyngeal erythema, Oral lesions Neck: positive: Nml inspection, Thyroid nml, No JVD, Trachea midline. negative : Thyromegaly, Lymphadenopathy (R), Lymphadenopathy (L), Carotid bruit, Tracheal deviation Respiratory: positive: Chest non-tender, No respiratory distress, Rales ( bilateral), Rhonchi Cardiovascular: positive: Regular rate & rhythm, No murmur, No gallop Peripheral Pulses: positive: 2+ Abdomen: positive: Tenderness, Other (Abdominal distention with positve fluid wave testing. Abdominal wall edema.). negative: Guarding, Rebound, Hepatomegaly Back: positive: Nml inspection. negative: CVA tenderness (R), CVA tenderness (L ) Skin: positive: Skin rash. negative: Cyanosis, Pallor Extremities: positive: Non-tender, Full ROM, Pedal edema (4+ bilateral up to thighs), Other (LE very tender) Neurologic/Psychiatric: positive: Oriented x3, CN's nml (2-12), Sensation nml, Mood/affect nml, Weakness (general) Conclusion/Plan - Problem List (1) Failure to thrive Conclusion/Plan: Patient not eating well with increasing weakness and worsening nutritional status Secondary to metastatic cancer no longer able to tolerate chemotherapy So weak she cannot stand Plan: Consult hospice Give IVFs Consult nutrition PT eval Qualifiers: Failure to thrive age range: in adult Qualified Code(s): R62.7 - Adult failure to thrive (2) Anasarca Conclusion/Plan: Severe anasarca Secondary to protein calorie malnutrition and metastatic cancer compressing the aorta Patient has intravascular depletion therefore need to hydrate before giving her any diuretics (3) VIET (acute kidney injury) Conclusion/Plan: Patients public service administrator elevated at 2.3 from 1.4 with elevated BUN Likely secondary to dehydration as patient has had very poor intake Plan: Give IVFs Avoid any nephrotoxc agents (4) Dehydration Conclusion/Plan: Secondary to poor PO intake and nausea/vomiting due to metastatic cancer Will give patient IVFs and encourage PO intake and nutrition (5) Protein calorie malnutrition Conclusion/Plan: Secondary to poor PO intake due to nausea and early satiety from cancer Nutrition consult Talked to patient about TPN or Tube feedings but given severity of cancer it maybe futile at his point and would not likely improve quality of life (6) Endometrial cancer Conclusion/Plan: Metastatic Terminal cancer Stopped chemo in Nov Worsening progression Patient with failure to thrive She is DNR We are discussing the possibility of hospice but patient states she still has a lot of things she needs to take care of before she is ready to go Palliative and hospice consult - Lab Results Lab results reviewed: Yes Fish Bones: 10/15/16 05:20 10/15/16 05:20 - Diagnostic Imaging Results Diagnostic Imaging Results: positive: Final report reviewed Diagnostic Imaging Results Comments: Laboratory Results WBC 6.3 x10^3/uL (4.8-10.8) 10/15/16 05:20 RBC 3.89 10^6/uL (4.20-5.40) L 10/15/16 05:20 Hgb 11.8 g/dL (12.0-16.0) L 10/15/16 05:20 Hct 34.7 % (37.0-47.0) L 10/15/16 05:20 MCV 89.2 fL (81.0-99.0) 10/15/16 05:20 MCH 30.4 pg (27.0-31.0) 10/15/16 05:20 MCHC 34.1 g/dL (32.0-36.0) 10/15/16 05:20 RDW 18.1 % (12.0-15.0) H 10/15/16 05:20 Plt Count 147 10^3/uL (130-450) 10/15/16 05:20 MPV 8.6 fL (7.9-10.8) 10/15/16 05:20 Neut # 4.3 10^3/uL (1.5-6.6) 10/15/16 05:20 Lymph # 0.4 10^3/uL (1.5-3.5) L 10/15/16 05:20 [place] # 1.3 10^3/uL (0.0-1.0) H 10/15/16 05:20 Eos # 0.1 10^3/uL (0.0-0.7) 10/15/16 05:20 Baso # 0.1 10^3/uL (0.0-0.1) 10/15/16 05:20 Absolute Nucleated RBC 0.00 x10^3/uL 10/15/16 05:20 Nucleated RBCs 0.0 /100WBC 10/15/16 05:20 Sodium 136 mmol/L (135-145) 10/15/16 05:20 Potassium 3.7 mmol/L (3.5-5.0) 10/15/16 05:20 Chloride 99 mmol/L (101-111) L 10/15/16 05:20 Carbon Dioxide 25 mmol/L (21-32) 10/15/16 05:20 Anion Gap 12.0 (6-13) 10/15/16 05:20 BUN 52 mg/dL (6-20) H 10/15/16 05:20 Creatinine 2.3 mg/dL (0.4-1.0) H 10/15/16 05:20 Estimated GFR (MDRD) 22 (>89) L 10/15/16 05:20 Glucose 96 mg/dL (70-100) 10/15/16 05:20 Calcium 8.8 mg/dL (8.5-10.3) 10/15/16 05:20 Total Bilirubin 0.8 mg/dL (0.2-1.0) 10/15/16 05:20 AST 91 IU/L (10-42) H 10/15/16 05:20 ALT 36 IU/L (10-60) 10/15/16 05:20 Alkaline Phosphatase 116 IU/L (42-121) 10/15/16 05:20 B-Natriuretic Peptide 37 pg/mL (5-100) 10/15/16 05:20 Total Protein 6.1 g/dL (6.7-8.2) L 10/15/16 05:20 Albumin 2.6 g/dL (3.2-5.5) L 10/15/16 05:20 Globulin 3.5 g/dL (2.1-4.2) 10/15/16 05:20 Albumin/Globulin Ratio 0.7 (1.0-2.2) L 10/15/16 05:20 Prealbumin 6 mg/dL (18-45) L 10/15/16 05:20 Lipase 33 U/L (22-51) 10/15/16 05:20 TSH 4.52 uIU/mL (0.34-5.60) 10/15/16 05:20 Issues/Core Measures - Anticipated LOS Anticipated Stay Length: 2 or more midnights - DVT/VTE - Prophylaxis VTE/DVT Prophylaxis med ordered at admit?: Yes
[2016-10-15] MEDS: SODIUM CHLORIDE 0.9% 1,000 ML IV SCH ×2 (08:17→17:10)
[2016-10-15] MEDS: ENOXAPARIN 30 MG/0.3 ML SYRINGE SUBQ SCH (08:18)
[2016-10-15] MEDS: SIMETHICONE CHEW 80 MG TABLET PO SCH ×3 (08:18→17:09)
[2016-10-15] MEDS: POLYETHYLENE GLYCOL 3350 17 GM PACKET PO SCH (08:19)
[2016-10-15] MEDS: MORPHINE SOL 10 MG/0.5 ML SYRINGE PO PRN ×3 (08:20→17:09)
[2016-10-15] MEDS: PANTOPRAZOLE 40 MG TABLET PO SCH (08:21)
[2016-10-15] MEDS: ONDANSETRON 4 MG/2 ML VIAL IVP PRN (11:59)
[2016-10-15] MEDS: SODIUM CHLORIDE FLUSH 0.9% 10 ML SYRINGE IVP PRN (12:00)
[2016-10-15] MEDS ORDERED: BISACODYL 10 MG SUPP PR SCH (12:05)
[2016-10-15] MEDS: SODIUM CHLORIDE FLUSH 0.9% 10 ML SYRINGE IVP SCH ×2 (13:45→18:45)
--- NOTE | 2016-10-15 20:14 | Ultrasound Preliminary Report ---
Exam: US Abdomen Complete IMPRESSION: 1. Interval development of multiple hepatic heterogeneous hypoechoic lesions most consistent with met astatic disease with significant progression compared to 09/11/2016. 2. Cholelithiasis. No sonographic evidence of cholecystitis. No biliary ductal dilatation. 3. Moderate volume of intra-abdominal ascites. 4. Bilateral hydronephrosis. 5. Left periaortic 8.8 cm mass consistent with metastatic disease. 5. 2.2 cm heterogeneous in the region of the body of the pancreas consistent with a pancreatic body m ass versus adenopathy. [facility] SITE ID: [id number]
--- NOTE | 2016-10-15 20:33 | Ultrasound Report ---
EXAM: ABDOMEN ULTRASOUND EXAM DATE: 10/15/2016 07:49 PM. CLINICAL HISTORY: Ascites. History of gallstones. History of cancer. COMPARISON: 09/11/2016. 04/29/2016. 11/06/2016. TECHNIQUE: Real-time scanning was performed with static images obtained. FINDINGS: Liver: Innumerable hepatic lesions are seen throughout the liver with significant progression compare d to 09/11/2016. The largest in the left lobe measuring 1.8 x 1.4 x 1.47 cm and in the right lobe corey suring 1.9 x 1.7 x 1.7 cm. In the right lobe, there is a 1.5 x 1.6 x 1.4 cm cyst. Echogenic hepatic p arenchyma. No intrahepatic ductal dilatation. The liver is not enlarged, 14.6 cm. Main portal vein fl ow: Hepatopetal. Gallbladder: Numerous gallstones are seen throughout the gallbladder, the largest measuring up to 2 c m. No gallbladder wall thickening. Small volume of pericholecystic fluid. Per hat binder, no sonogra phic Yan's sign was elicited. Biliary System: Common bile duct measures 5 mm. Common bile duct is not well seen. No intrahepatic du ctal dilatation. Pancreas: Hypoechoic lesion in the region of the mid body of the pancreas measuring 2 x 2.2 x 1.9 cm. There is vascularity noted. Kidneys: Right: 10.2 cm longitudinally. Normal echotexture. Mild hydronephrosis in the interval. No solid lesli l masses. Left: 9.9 cm longitudinally. Normal echotexture. Mild hydronephrosis in the interval. No solid renal masses. Spleen: 11 cm. Normal in size and echotexture. Aorta and Inferior Vena Cava: Abdominal aorta is not well seen, particularly distally. IVC is poorly seen and appears unremarkable. Moderate volume of intraabdominal ascites. There is a heterogeneous mass along the left lateral margin of the abdominal aorta measuring up to 5. 4 x 5.6 x 8.8 cm, as seen on the prior CT. IMPRESSION: 1. Interval development of multiple hepatic heterogeneous hypoechoic lesions most consistent with met astatic disease with significant progression compared to 09/11/2016. 2. Cholelithiasis. No sonographic evidence of cholecystitis. No biliary ductal dilatation. 3. Moderate volume of intraabdominal ascites. 4. Bilateral hydronephrosis. 5. Left periaortic 8.8 cm mass consistent with metastatic disease. 6. 2.2 cm heterogeneous in the region of the body of the pancreas consistent with a pancreatic body m ass versus adenopathy. [facility] Referring Provider Line: [phone] SITE ID: [id number]
[2016-10-15] MEDS: LORazepam 1 MG/0.5 ML ORAL SYRINGE PO PRN (23:53)
[2016-10-16] MEDS ORDERED: ALPRAZolam 0.25 MG TABLET PO PRN (00:04)
[2016-10-16] MEDS: SODIUM CHLORIDE 0.9% 1,000 ML IV SCH ×2 (04:38→14:33)
[2016-10-16] MEDS: MORPHINE SOL 10 MG/0.5 ML SYRINGE PO PRN ×2 (04:43→13:05)
[2016-10-16] MEDS: SODIUM CHLORIDE FLUSH 0.9% 10 ML SYRINGE IVP SCH ×3 (05:31→20:45)
[2016-10-16 05:55] LABS: BASOPHILS % (AUTO) 0.9 %; EOSINOPHILS # (AUTO) 0.1 10^3/uL (0.0-0.7); EOSINOPHILS % (AUTO) 1.9 %; HCT - HEMATOCRIT 32.3 % (37.0-47.0); LYMPHOCYTES # (AUTO) 0.4 10^3/uL (1.5-3.5); LYMPHOCYTES % (AUTO) 6.7 %; MEAN CORPUSCULAR HEMOGLOBIN 30.5 pg (27.0-31.0); MEAN CORPUSCULAR HGB CONC 33.9 g/dL (32.0-36.0); MEAN CORPUSCULAR VOLUME 89.9 fL (81.0-99.0); MEAN PLATELET VOLUME 8.2 fL (7.9-10.8); MONOCYTES # (AUTO) 1.1 10^3/uL (0.0-1.0); MONOCYTES % (AUTO) 19.2 %; NEUTROPHILS # (AUTO) 3.9 10^3/uL (1.5-6.6); NEUTROPHILS % (AUTO) 71.3 %; NUCLEATED RED BLOOD CELLS AUTO 0.1 /100WBC; RED CELL DISTRIBUTION WIDTH 17.8 % (12.0-15.0); UNCORRECTED WHITE BLOOD COUNT 5.5 x10^3/uL; WHITE BLOOD COUNT 5.5 x10^3/uL (4.8-10.8)
[2016-10-16] MEDS: PANTOPRAZOLE 40 MG TABLET PO SCH (05:59)
[2016-10-16 06:05] LABS: ALBUMIN/GLOBULIN RATIO 0.7 (1.0-2.2); BILIRUBIN,TOTAL 1.1 mg/dL (0.2-1.0); CALCIUM 8.3 mg/dL (8.5-10.3); CREATININE 2.3 mg/dL (0.4-1.0); MAGNESIUM 1.6 mg/dL (1.7-2.8); PHOSPHORUS 4.7 mg/dL (2.5-4.6); TOTAL PROTEIN 5.4 g/dL (6.7-8.2)
[2016-10-16 07:02] LABS: BILIRUBIN,URINE NEGATIVE (NEGATIVE); PH,URINE 5.5 PH (5.0-7.5)
[2016-10-16 07:08] LABS: UA CHARGE (STRIP ONLY) YES; UR CULTURE IF IND NOT INDICATED
[2016-10-16] MEDS ORDERED: CALAMINE/ZINC OXIDE 118 ML BOTTLE TOP PRN (07:41)
[2016-10-16] MEDS: SIMETHICONE CHEW 80 MG TABLET PO SCH ×3 (08:20→19:17)
[2016-10-16] MEDS: PANTOPRAZOLE 40 MG VIAL IVP SCH (08:22)
[2016-10-16] MEDS: POLYETHYLENE GLYCOL 3350 17 GM PACKET PO SCH ×2 (08:22→11:34)
[2016-10-16] MEDS: ONDANSETRON 4 MG/2 ML VIAL IVP PRN ×2 (08:31→14:35)
[2016-10-16] MEDS: ENOXAPARIN 30 MG/0.3 ML SYRINGE SUBQ SCH (08:31)
[2016-10-16] MEDS ORDERED: diphenhydrAMINE ELIXIR 25 MG/10 ML UDC PO PRN (10:49)
[2016-10-16] MEDS ORDERED: LACTULOSE 10 GM /15 ML UDC PO ONE ×2 (12:00→18:10)
--- NOTE | 2016-10-16 12:37 | PROVIDER PROGRESS NOTE ---
Assessment/Plan - Problem List (1) VIET (acute kidney injury) Assessment/Plan: Leah's GFR has not changed significantly. She wants the edema dramatically reduced so she can be more mobile. and function better at home. Will give a dose of Lasix this afternoo to determine if she can tolerate and have positive effect. (2) Endometrial cancer Assessment/Plan: Her US displayed increased cancer load. She was informed last sis by Dr. Cunningham. She was expectedly upset. She still is not receptive to hospice. (3) Protein calorie malnutrition Assessment/Plan: Her albumin has dropped from 2.6 to 2.3. This and her obesity contribute to her pedal edema. - Current Meds Current Meds: Current Medications Generic Name Dose Route Start Last Admin Trade Name Freq PRN Reason Stop Dose Admin Alprazolam 0.25 mg 10/16/16 00:04 10/16/16 00:27 Xanax PO 0.25 mg Q6HR PRN Administration Anxiety Enoxaparin Sodium 30 mg 10/15/16 09:00 10/16/16 08:31 Lovenox SUBQ 30 mg DAILY KARLA Administration Sodium Chloride 1,000 mls @ 100 mls/hr 10/15/16 07:00 10/16/16 04:38 Normal Saline 0.9% IV 100 mls/hr .Q10H KARLA Administration Morphine Sulfate 10 mg 10/15/16 06:06 10/16/16 04:43 Roxanol PO 10 mg Q1H PRN Administration Pain/Dyspnea Ondansetron HCl 4 mg 10/15/16 06:07 10/16/16 08:31 Zofran Inj IVP 4 mg Q6HR PRN Administration Nausea / Vomiting Pantoprazole Sodium 40 mg 10/16/16 08:00 10/16/16 08:22 Protonix IVP 40 mg QDAC KARLA Administration Polyethylene Glycol 17 gm 10/15/16 09:00 10/16/16 11:34 Miralax PO Not Given DAILY KARLA Simethicone 80 mg 10/15/16 08:00 10/16/16 12:13 Mylicon PO Not Given TIDWM KARLA Sodium Chloride 10 ml 10/15/16 06:07 10/15/16 12:00 Normal Saline Flush 0.9% IVP 10 ml PRN PRN Administration NEEDED PER PROVIDER ORDERS Sodium Chloride 10 ml 10/15/16 14:00 10/16/16 12:13 Normal Saline Flush 0.9% IVP Not Given Q8HR KARLA - Lab Result Fish Bone Diagrams: 10/16/16 05:36 10/16/16 05:36 - Additional Planning My Orders: My Active Orders 10/16/16 07:41 Calamine/Zinc Oxide [Calamine] 1 applic TOP PRN PRN 10/16/16 08:00 Pantoprazole [Protonix] 40 mg IVP QDAC 10/16/16 10:49 diphenhydrAMINE ELIXIR [Benadryl Elixir] 25 mg PO Q6HR PRN 10/16/16 12:45 Bisacodyl Supp [Dulcolax Supp] 10 mg WI ONCE ONE Subjective - Subjective Patient Reports: Resting Comfortably, Itching, Nausea Nursing Reports: Nausea Objective Vital Signs: Vital Signs - 24 hr 10/15/16 10/15/16 10/15/16 13:00 15:35 20:00 Temperature 36.4 C L 36.3 C L 36.5 C Heart Rate [ 90 99 99 Brachial] Respiratory 16 16 16 Rate Blood Pressure 104/67 108/75 121/83 H [Left Brachial artery] Blood Pressure [Right Brachial artery] O2 Saturation 97 99 95 10/15/16 10/16/16 10/16/16 23:34 04:11 10:01 Temperature 36.4 C L 36.6 C 36.5 C Heart Rate [ 106 H 99 95 Brachial] Respiratory 20 18 20 Rate Blood Pressure 111/77 110/73 [Left Brachial artery] Blood Pressure 92/64 [Right Brachial artery] O2 Saturation 92 96 97 Oxygen O2 Source Nasal cannula I&O (Last 24 Hrs): Intake and Output Totals x24h 10/14/16 10/15/16 10/16/16 23:59 23:59 23:59 Intake Total 750 1540 Output Total 640 420 Balance 110 1120 General: Alert, Oriented x3, Cooperative HEENT: PERRLA, EOMI Neck: No JVD, No thyromegaly Neuro: Alert, Oriented Times 3 Cardiovascular: Regular rate, No murmurs Respiratory: Chest non-tender, No respiratory distress, Breath sounds nml Abdomen: Normal bowel sounds Extremities: No clubbing, No cyanosis Skin: No breakdown (She has resolving Shingles) - Results Results: Laboratory Results WBC 5.5 x10^3/uL (4.8-10.8) 10/16/16 05:36 RBC 3.60 10^6/uL (4.20-5.40) L 10/16/16 05:36 Hgb 11.0 g/dL (12.0-16.0) L 10/16/16 05:36 Hct 32.3 % (37.0-47.0) L 10/16/16 05:36 MCV 89.9 fL (81.0-99.0) 10/16/16 05:36 MCH 30.5 pg (27.0-31.0) 10/16/16 05:36 MCHC 33.9 g/dL (32.0-36.0) 10/16/16 05:36 RDW 17.8 % (12.0-15.0) H 10/16/16 05:36 Plt Count 134 10^3/uL (130-450) 10/16/16 05:36 MPV 8.2 fL (7.9-10.8) 10/16/16 05:36 Neut # 3.9 10^3/uL (1.5-6.6) 10/16/16 05:36 Lymph # 0.4 10^3/uL (1.5-3.5) L 10/16/16 05:36 [place] # 1.1 10^3/uL (0.0-1.0) H 10/16/16 05:36 Eos # 0.1 10^3/uL (0.0-0.7) 10/16/16 05:36 Baso # 0.0 10^3/uL (0.0-0.1) 10/16/16 05:36 Absolute Nucleated RBC 0.00 x10^3/uL 10/16/16 05:36 Nucleated RBCs 0.1 /100WBC 10/16/16 05:36 Sodium 137 mmol/L (135-145) 10/16/16 05:36 Potassium 4.0 mmol/L (3.5-5.0) 10/16/16 05:36 Chloride 102 mmol/L (101-111) 10/16/16 05:36 Carbon Dioxide 25 mmol/L (21-32) 10/16/16 05:36 Anion Gap 10.0 (6-13) 10/16/16 05:36 BUN 53 mg/dL (6-20) H 10/16/16 05:36 Creatinine 2.3 mg/dL (0.4-1.0) H 10/16/16 05:36 Estimated GFR (MDRD) 22 (>89) L 10/16/16 05:36 Glucose 85 mg/dL (70-100) 10/16/16 05:36 Calcium 8.3 mg/dL (8.5-10.3) L 10/16/16 05:36 Phosphorus 4.7 mg/dL (2.5-4.6) H 10/16/16 05:36 Magnesium 1.6 mg/dL (1.7-2.8) L 10/16/16 05:36 Total Bilirubin 1.1 mg/dL (0.2-1.0) H 10/16/16 05:36 AST 86 IU/L (10-42) H 10/16/16 05:36 ALT 33 IU/L (10-60) 10/16/16 05:36 Alkaline Phosphatase 112 IU/L (42-121) 10/16/16 05:36 B-Natriuretic Peptide 37 pg/mL (5-100) 10/15/16 05:20 Total Protein 5.4 g/dL (6.7-8.2) L 10/16/16 05:36 Albumin 2.3 g/dL (3.2-5.5) L 10/16/16 05:36 Globulin 3.1 g/dL (2.1-4.2) 10/16/16 05:36 Albumin/Globulin Ratio 0.7 (1.0-2.2) L 10/16/16 05:36 Prealbumin 6 mg/dL (18-45) L 10/15/16 05:20 Lipase 33 U/L (22-51) 10/15/16 05:20 TSH 4.52 uIU/mL (0.34-5.60) 10/15/16 05:20 Urine Color YELLOW 10/16/16 06:38 Urine Clarity CLEAR (CLEAR) 10/16/16 06:38 Urine pH 5.5 PH (5.0-7.5) 10/16/16 06:38 Ur Specific [place] 1.020 (1.002-1.030) 10/16/16 06:38 Urine Protein NEGATIVE mg/dL (NEGATIVE) 10/16/16 06:38 Urine Glucose (UA) NEGATIVE mg/dL (NEGATIVE) 10/16/16 06:38 Urine Ketones NEGATIVE mg/dL (NEGATIVE) 10/16/16 06:38 Urine Occult Blood NEGATIVE (NEGATIVE) 10/16/16 06:38 Urine Nitrite NEGATIVE (NEGATIVE) 10/16/16 06:38 Urine Bilirubin NEGATIVE (NEGATIVE) 10/16/16 06:38 Urine Urobilinogen 0.2 (NORMAL) E.U./dL (NORMAL) 10/16/16 06:38 Ur Leukocyte Esterase NEGATIVE (NEGATIVE) 10/16/16 06:38 Ur Microscopic Review NOT INDICATED 10/16/16 06:38 Urine Culture Comments NOT INDICATED 10/16/16 06:38 - Procedures Procedures: Procedures FLUOROSCOPY OF SUP VENA CAVA USING L OSM CONTRAST, GUIDANCE (11/24/15) INSERTION OF INFUSION DEV INTO SUP VENA CAVA, PERC APPROACH (11/24/15) INSERTION OF VAD INTO CHEST SUBCU/FASCIA, OPEN APPROACH (11/24/15)
[2016-10-16] MEDS ORDERED: BISACODYL 10 MG SUPP PR ONE (12:45)
[2016-10-16] MEDS ORDERED: SALINE ENEMA 133 ML BOTTLE RC ONE (14:15)
[2016-10-16] MEDS ORDERED: FUROSEMIDE 40 MG/4 ML VIAL IVP ONE (14:45)
[2016-10-16] MEDS: MORPHINE 2 MG/ML SYRINGE IVP PRN (14:50)
[2016-10-16] MEDS: LORazepam 1 MG/0.5 ML ORAL SYRINGE PO PRN (17:17)
[2016-10-16] MEDS ORDERED: WITCH HAZEL/GLYCERIN 1 EACH MED..PAD TOP PRN (17:40)
[2016-10-17] MEDS: SODIUM CHLORIDE 0.9% 1,000 ML IV SCH ×3 (00:31→22:04)
[2016-10-17] MEDS: MORPHINE 2 MG/ML SYRINGE IVP PRN ×2 (01:35→19:37)
[2016-10-17 05:52] LABS: BASOPHILS # (AUTO) 0.1 10^3/uL (0.0-0.1); BASOPHILS % (AUTO) 0.8 %; EOSINOPHILS % (AUTO) 0.2 %; HCT - HEMATOCRIT 37.1 % (37.0-47.0); HGB - HEMOGLOBIN 12.2 g/dL (12.0-16.0); LYMPHOCYTES # (AUTO) 0.4 10^3/uL (1.5-3.5); LYMPHOCYTES % (AUTO) 4.9 %; MEAN CORPUSCULAR HEMOGLOBIN 30.3 pg (27.0-31.0); MEAN CORPUSCULAR HGB CONC 32.9 g/dL (32.0-36.0); MEAN CORPUSCULAR VOLUME 92.1 fL (81.0-99.0); MEAN PLATELET VOLUME 8.7 fL (7.9-10.8); MONOCYTES # (AUTO) 1.3 10^3/uL (0.0-1.0); MONOCYTES % (AUTO) 18.1 %; NEUTROPHILS # (AUTO) 5.6 10^3/uL (1.5-6.6); NUCLEATED RED BLOOD CELLS AUTO 0.2 /100WBC; RED BLOOD COUNT 4.03 10^6/uL (4.20-5.40); RED CELL DISTRIBUTION WIDTH 18.6 % (12.0-15.0); UNCORRECTED WHITE BLOOD COUNT 7.4 x10^3/uL; WHITE BLOOD COUNT 7.4 x10^3/uL (4.8-10.8)
[2016-10-17 06:03] LABS: ALBUMIN/GLOBULIN RATIO 0.8 (1.0-2.2); CALCIUM 8.4 mg/dL (8.5-10.3); CREATININE 2.5 mg/dL (0.4-1.0); MAGNESIUM 1.5 mg/dL (1.7-2.8); POTASSIUM 4.1 mmol/L (3.5-5.0); TOTAL PROTEIN 5.8 g/dL (6.7-8.2)
[2016-10-17] MEDS: PANTOPRAZOLE 40 MG VIAL IVP SCH (06:12)
[2016-10-17] MEDS: SODIUM CHLORIDE FLUSH 0.9% 10 ML SYRINGE IVP SCH ×3 (06:12→22:05)
[2016-10-17] MEDS: ZINC OXIDE 20% OINT 28.35 GM TUBE TOP PRN (08:45)
[2016-10-17] MEDS: POLYETHYLENE GLYCOL 3350 17 GM PACKET PO SCH (09:00)
[2016-10-17] MEDS: ONDANSETRON 4 MG/2 ML VIAL IVP PRN (09:33)
[2016-10-17] MEDS: SIMETHICONE CHEW 80 MG TABLET PO SCH ×3 (09:33→18:31)
[2016-10-17] MEDS: ENOXAPARIN 30 MG/0.3 ML SYRINGE SUBQ SCH (10:53)
[2016-10-17] MEDS: valACYclovir 500 MG TABLET PO SCH ×2 (14:48→20:49)
--- NOTE | 2016-10-17 16:04 | ADVANCE CARE PLANNING NOTE ---
Advance Care Planning - Date/Time Date: 10/17/16 Time: 15:15 - Purpose of encounter Text: to assist her in deciding about Hospice - Parties in attendance Parties in attendance: Roberto Monae MD Leah Karthik Angeles, daughter - Decisional capacity Decisional capacity of: both daughter POA and patient - Subjective/Patient's story Subjective/Patient's story: She has recurrent metastatic endometrial cancer This is compounded by her stage iV CKD - Goals of Care Goals of care determinations: lengthy discussion on multiple occasions with multiple providers about her advanced cancer and lack of treatment . the result is a terminal condition. Leah does not want to know the estimate of her time left. She also wants to consider the end of life option. - Code Status Code Status: Do Not Attempt Resuscitation - Time Spent on Advance Care Planning Time spent on advance care planning: Time spent was 25 minutes
--- NOTE | 2016-10-17 16:23 | PROVIDER PROGRESS NOTE ---
Assessment/Plan - Problem List (1) Endometrial cancer Assessment/Plan: IT IS TERMINAL AND RUSTY IS BEGINNING to acknowledge and accept this. (2) VIET (acute kidney injury) Assessment/Plan: She received Lasix yesterday and had a poor response and her GFR declined as well She was informed of this result this am - Current Meds Current Meds: Current Medications Generic Name Dose Route Start Last Admin Trade Name Freq PRN Reason Stop Dose Admin Alprazolam 0.25 mg 10/16/16 00:04 10/16/16 00:27 Xanax PO 0.25 mg Q6HR PRN Administration Anxiety Diphenhydramine HCl 25 mg 10/16/16 10:49 10/16/16 13:03 Benadryl Elixir PO 25 mg Q6HR PRN Administration ITCHING Enoxaparin Sodium 30 mg 10/15/16 09:00 10/17/16 10:53 Lovenox SUBQ 30 mg DAILY KARLA Administration Sodium Chloride 1,000 mls @ 100 mls/hr 10/15/16 07:00 10/17/16 11:24 Normal Saline 0.9% IV 100 mls/hr .Q10H KARLA Administration Lorazepam 2 mg 10/15/16 06:06 10/16/16 17:17 Ativan Intensol PO 2 mg Q6H PRN Administration Nausea / Vomiting Morphine Sulfate 10 mg 10/15/16 06:06 10/16/16 13:05 Roxanol PO 10 mg Q1H PRN Administration Pain/Dyspnea Morphine Sulfate 2 mg 10/15/16 06:07 10/17/16 01:35 Morphine IVP 2 mg Q2HR PRN Administration Pain 8 to 10 Multi-Ingredient Ointment 1 applic 10/16/16 21:53 10/17/16 08:45 Zinc Oxide TOP 1 applic PRN PRN Administration Skin Care Ondansetron HCl 4 mg 10/15/16 06:07 10/17/16 09:33 Zofran Inj IVP 4 mg Q6HR PRN Administration Nausea / Vomiting Pantoprazole Sodium 40 mg 10/16/16 08:00 10/17/16 06:12 Protonix IVP 40 mg QDAC KARLA Administration Polyethylene Glycol 17 gm 10/15/16 09:00 10/17/16 09:00 Miralax PO Not Given DAILY KARLA Simethicone 80 mg 10/15/16 08:00 10/17/16 13:22 Mylicon PO 80 mg TIDWM KARLA Administration Sodium Chloride 10 ml 10/15/16 06:07 10/15/16 12:00 Normal Saline Flush 0.9% IVP 10 ml PRN PRN Administration NEEDED PER PROVIDER ORDERS Sodium Chloride 10 ml 10/15/16 14:00 10/17/16 15:01 Normal Saline Flush 0.9% IVP Not Given Q8HR KARLA Valacyclovir HCl 1,000 mg 10/17/16 14:00 10/17/16 14:48 Valtrex PO 1,000 mg BID KARLA Administration - Lab Result Fish Bone Diagrams: 10/17/16 05:21 10/17/16 05:21 - Additional Planning My Orders: My Active Orders 10/16/16 17:40 Witch Ana/Glycerin [Tucks] 1 each TOP PRN PRN 10/16/16 21:53 Zinc Oxide 20% Oint [Zinc Oxide] 1 applic TOP PRN PRN 10/17/16 14:00 valACYclovir [Valtrex] 1,000 mg PO BID Subjective - Subjective Patient Reports: Back Pain, Nausea, Shortness of Breath Nursing Reports: Nausea, Pain, Shortness of Breath Objective Vital Signs: Vital Signs - 24 hr 10/16/16 10/16/16 10/17/16 18:00 20:18 00:06 Temperature 36.2 C L 36.7 C 37.0 C Heart Rate [ 105 H 113 H Brachial] Heart Rate [ 75 Radial] Respiratory 20 20 16 Rate Blood Pressure 109/75 [Left Brachial artery] Blood Pressure 92/62 103/71 [Right Brachial artery] O2 Saturation 96 93 92 10/17/16 10/17/16 10/17/16 06:06 08:08 11:40 Temperature 36.8 C 37.0 C 36.6 C Heart Rate [ 119 H 114 H 109 H Brachial] Heart Rate [ Radial] Respiratory 18 18 16 Rate Blood Pressure 107/72 100/68 92/61 [Left Brachial artery] Blood Pressure [Right Brachial artery] O2 Saturation 95 95 99 10/17/16 16:06 Temperature 37.1 C Heart Rate [ 108 H Brachial] Heart Rate [ Radial] Respiratory 20 Rate Blood Pressure [Left Brachial artery] Blood Pressure 105/71 [Right Brachial artery] O2 Saturation 96 Oxygen O2 Source Nasal cannula I&O (Last 24 Hrs): Intake and Output Totals x24h 10/15/16 10/16/16 10/17/16 23:59 23:59 23:59 Intake Total 750 2758 910 Output Total 640 620 1 Balance 110 2138 909 General: Alert, Oriented x3, Cooperative HEENT: PERRLA, EOMI Neck: No JVD, No thyromegaly Neuro: Alert, Oriented Times 3 Cardiovascular: Regular rate, No murmurs Respiratory: Chest non-tender, No respiratory distress, Rhonchi Abdomen: Soft, No tenderness - Results Results: Laboratory Results WBC 7.4 x10^3/uL (4.8-10.8) 10/17/16 05:21 RBC 4.03 10^6/uL (4.20-5.40) L 10/17/16 05:21 Hgb 12.2 g/dL (12.0-16.0) 10/17/16 05:21 Hct 37.1 % (37.0-47.0) 10/17/16 05:21 MCV 92.1 fL (81.0-99.0) 10/17/16 05:21 MCH 30.3 pg (27.0-31.0) 10/17/16 05:21 MCHC 32.9 g/dL (32.0-36.0) 10/17/16 05:21 RDW 18.6 % (12.0-15.0) H 10/17/16 05:21 Plt Count 148 10^3/uL (130-450) 10/17/16 05:21 MPV 8.7 fL (7.9-10.8) 10/17/16 05:21 Neut # 5.6 10^3/uL (1.5-6.6) 10/17/16 05:21 Lymph # 0.4 10^3/uL (1.5-3.5) L 10/17/16 05:21 [place] # 1.3 10^3/uL (0.0-1.0) H 10/17/16 05:21 Eos # 0.0 10^3/uL (0.0-0.7) 10/17/16 05:21 Baso # 0.1 10^3/uL (0.0-0.1) 10/17/16 05:21 Absolute Nucleated RBC 0.01 x10^3/uL 10/17/16 05:21 Nucleated RBCs 0.2 /100WBC 10/17/16 05:21 Sodium 137 mmol/L (135-145) 10/17/16 05:21 Potassium 4.1 mmol/L (3.5-5.0) 10/17/16 05:21 Chloride 101 mmol/L (101-111) 10/17/16 05:21 Carbon Dioxide 21 mmol/L (21-32) 10/17/16 05:21 Anion Gap 15.0 (6-13) H 10/17/16 05:21 BUN 56 mg/dL (6-20) H 10/17/16 05:21 Creatinine 2.5 mg/dL (0.4-1.0) H 10/17/16 05:21 Estimated GFR (MDRD) 20 (>89) L 10/17/16 05:21 Glucose 90 mg/dL (70-100) 10/17/16 05:21 Calcium 8.4 mg/dL (8.5-10.3) L 10/17/16 05:21 Phosphorus 6.0 mg/dL (2.5-4.6) H 10/17/16 05:21 Magnesium 1.5 mg/dL (1.7-2.8) L 10/17/16 05:21 Total Bilirubin 1.0 mg/dL (0.2-1.0) 10/17/16 05:21 AST 133 IU/L (10-42) H 10/17/16 05:21 ALT 45 IU/L (10-60) 10/17/16 05:21 Alkaline Phosphatase 120 IU/L (42-121) 10/17/16 05:21 B-Natriuretic Peptide 37 pg/mL (5-100) 10/15/16 05:20 Total Protein 5.8 g/dL (6.7-8.2) L 10/17/16 05:21 Albumin 2.5 g/dL (3.2-5.5) L 10/17/16 05:21 Globulin 3.3 g/dL (2.1-4.2) 10/17/16 05:21 Albumin/Globulin Ratio 0.8 (1.0-2.2) L 10/17/16 05:21 Prealbumin 6 mg/dL (18-45) L 10/15/16 05:20 Lipase 33 U/L (22-51) 10/15/16 05:20 TSH 4.52 uIU/mL (0.34-5.60) 10/15/16 05:20 Urine Color YELLOW 10/16/16 06:38 Urine Clarity CLEAR (CLEAR) 10/16/16 06:38 Urine pH 5.5 PH (5.0-7.5) 10/16/16 06:38 Ur Specific [place] 1.020 (1.002-1.030) 10/16/16 06:38 Urine Protein NEGATIVE mg/dL (NEGATIVE) 10/16/16 06:38 Urine Glucose (UA) NEGATIVE mg/dL (NEGATIVE) 10/16/16 06:38 Urine Ketones NEGATIVE mg/dL (NEGATIVE) 10/16/16 06:38 Urine Occult Blood NEGATIVE (NEGATIVE) 10/16/16 06:38 Urine Nitrite NEGATIVE (NEGATIVE) 10/16/16 06:38 Urine Bilirubin NEGATIVE (NEGATIVE) 10/16/16 06:38 Urine Urobilinogen 0.2 (NORMAL) E.U./dL (NORMAL) 10/16/16 06:38 Ur Leukocyte Esterase NEGATIVE (NEGATIVE) 10/16/16 06:38 Ur Microscopic Review NOT INDICATED 10/16/16 06:38 Urine Culture Comments NOT INDICATED 10/16/16 06:38 - Procedures Procedures: Procedures FLUOROSCOPY OF SUP VENA CAVA USING L OSM CONTRAST, GUIDANCE (11/24/15) INSERTION OF INFUSION DEV INTO SUP VENA CAVA, PERC APPROACH (11/24/15) INSERTION OF VAD INTO CHEST SUBCU/FASCIA, OPEN APPROACH (11/24/15)
[2016-10-17] MEDS: LORazepam 1 MG/0.5 ML ORAL SYRINGE PO PRN (16:54)
[2016-10-17] MEDS ORDERED: MAGNESIUM SULFATE 2 GRAM 50 ML IV SCH (21:30)
[2016-10-18] MEDS: MORPHINE 2 MG/ML SYRINGE IVP PRN (00:21)
[2016-10-18] MEDS: SODIUM CHLORIDE FLUSH 0.9% 10 ML SYRINGE IVP SCH ×4 (05:33→20:39)
[2016-10-18 06:07] LABS: BASOPHILS # (AUTO) 0.1 10^3/uL (0.0-0.1); BASOPHILS % (AUTO) 0.8 %; EOSINOPHILS % (AUTO) 0.1 %; HCT - HEMATOCRIT 37.3 % (37.0-47.0); HGB - HEMOGLOBIN 12.3 g/dL (12.0-16.0); LYMPHOCYTES # (AUTO) 0.4 10^3/uL (1.5-3.5); LYMPHOCYTES % (AUTO) 3.6 %; MEAN CORPUSCULAR HEMOGLOBIN 30.2 pg (27.0-31.0); MEAN CORPUSCULAR VOLUME 91.4 fL (81.0-99.0); MEAN PLATELET VOLUME 8.3 fL (7.9-10.8); MONOCYTES # (AUTO) 1.9 10^3/uL (0.0-1.0); MONOCYTES % (AUTO) 16.1 %; NEUTROPHILS # (AUTO) 9.3 10^3/uL (1.5-6.6); NEUTROPHILS % (AUTO) 79.4 %; NUCLEATED RED BLOOD CELLS AUTO 0.1 /100WBC; RED BLOOD COUNT 4.08 10^6/uL (4.20-5.40); RED CELL DISTRIBUTION WIDTH 17.8 % (12.0-15.0); UNCORRECTED WHITE BLOOD COUNT 11.7 x10^3/uL; WHITE BLOOD COUNT 11.7 x10^3/uL (4.8-10.8)
[2016-10-18] MEDS: PANTOPRAZOLE 40 MG VIAL IVP SCH (06:11)
[2016-10-18 06:17] LABS: ALBUMIN/GLOBULIN RATIO 0.8 (1.0-2.2); CALCIUM 8.1 mg/dL (8.5-10.3); MAGNESIUM 1.9 mg/dL (1.7-2.8); PHOSPHORUS 6.1 mg/dL (2.5-4.6); POTASSIUM 4.2 mmol/L (3.5-5.0); TOTAL PROTEIN 5.6 g/dL (6.7-8.2)
[2016-10-18 08:03] LABS: PLATELET ESTIMATE, MANUAL NORMAL (130-450,000) (NORMAL); PLATELET MORPHOLOGY NORMAL APPEARANCE (NORMAL)
[2016-10-18] MEDS: SIMETHICONE CHEW 80 MG TABLET PO SCH ×3 (09:07→17:19)
[2016-10-18] MEDS: SODIUM CHLORIDE 0.9% 1,000 ML IV SCH (10:40)
[2016-10-18] MEDS: LORazepam 1 MG/0.5 ML ORAL SYRINGE PO PRN ×2 (11:09→20:40)
[2016-10-18] MEDS: ENOXAPARIN 30 MG/0.3 ML SYRINGE SUBQ SCH (11:18)
[2016-10-18] MEDS: SODIUM CHLORIDE FLUSH 0.9% 10 ML SYRINGE IVP PRN (12:45)
[2016-10-18] MEDS: valACYclovir 500 MG TABLET PO SCH ×3 (12:46→20:44)
[2016-10-18] MEDS: POLYETHYLENE GLYCOL 3350 17 GM PACKET PO SCH (13:23)
[2016-10-18] MEDS: ONDANSETRON 4 MG/2 ML VIAL IVP PRN (20:40)
[2016-10-19] MEDS: MORPHINE SOL 10 MG/0.5 ML SYRINGE PO PRN ×2 (02:41→06:41)
[2016-10-19] MEDS: PANTOPRAZOLE 40 MG VIAL IVP SCH (06:41)
[2016-10-19] MEDS: SODIUM CHLORIDE FLUSH 0.9% 10 ML SYRINGE IVP SCH ×3 (06:41→21:44)
[2016-10-19] MEDS: valACYclovir 500 MG TABLET PO SCH (08:37)
[2016-10-19] MEDS: POLYETHYLENE GLYCOL 3350 17 GM PACKET PO SCH (08:37)
[2016-10-19] MEDS: SIMETHICONE CHEW 80 MG TABLET PO SCH ×2 (08:37→12:12)
[2016-10-19] MEDS: ZINC OXIDE 20% OINT 28.35 GM TUBE TOP PRN (08:38)
[2016-10-19] MEDS: ENOXAPARIN 30 MG/0.3 ML SYRINGE SUBQ SCH (08:38)
--- NOTE | 2016-10-19 11:04 | PROVIDER PROGRESS NOTE ---
Subjective - Prog Note Date Prog Note Date: 10/18/16 Prog Note Time: 17:00 - Subjective Pt reports feeling: Worse Objective - Vital Signs/Intake & Output Reviewed Vital Signs: Yes Vital Signs: Vital Signs x48h Temp Pulse Resp BP Pulse Ox 10/19/16 07:52 36.9 C 107/69 10/19/16 07:47 120 H 20 91 L 10/19/16 05:12 37.2 C 128 H 18 120/68 93 Intake & Output: Intake & Output 10/16/16 10/17/16 10/18/16 10/19/16 23:59 23:59 23:59 23:59 Intake Total 2758 4224 1885 Output Total 620 71 530 100 Balance 2138 4153 1355 -100 - Objective General Appearance: positive: Alert, Mild distress Eyes Bilateral: positive: PERRL, EOMI Neck: positive: Thyroid nml, No JVD Respiratory: positive: Breath sounds nml Cardiovascular: positive: Tachycardia Abdomen: positive: Non-tender, Nml bowel sounds Skin: positive: Color nml, Skin rash (rash on R arm hand and R upper back) - Lab Results Fish Bones: 10/18/16 05:54 10/18/16 05:54 Assessment/Plan - Problem List (1) Endometrial cancer Impression: She has extensive metastatic disease. (2) VIET (acute kidney injury) Impression: the ARF is getting worse Creatinine is up to 3.0 from 2.5 UO is very poor.
[2016-10-19 11:58] VITALS: BP 111/78
[2016-10-20] MEDS: SODIUM CHLORIDE FLUSH 0.9% 10 ML SYRINGE IVP SCH (06:48)
--- NOTE | 2016-10-21 09:07 | DISCHARGE SUMMARY ---
DATE OF ADMISSION: 10/15/2016 DATE OF DISCHARGE: 10/20/2016 SUMMARY DATE OF ADMISSION: 10/15/2016. DATE OF : 10/20/2016. ADMISSION DIAGNOSES: 1. Failure to thrive. 2. Anasarca. 3. Acute kidney injury. 4. Dehydration. 5. Protein calorie malnutrition. 6. Endometrial cancer. CAUSE OF : 1. Acute renal failure. 2. Metastatic endometrial cancer. SPECIAL PROCEDURES: Abdominal ultrasound and impression: 1. Interval development of multiple hepatic heterogenous hypoechoic lesions most consistent with meta static disease with significant progression compared to 09/11/2016. 2. Cholelithiasis. No sonographic evidence of cholecystitis. No biliary duct dilatation. 3. Moderate volume of intra-abdominal ascites. 4. Bilateral hydronephrosis. 5. Left periaortic 8.8 cm mass consistent with metastatic disease. 6. A 2.2 cm heterogeneous mass in the region of the body of the pancreas consistent with pancreatic b marciano mass versus adenopathy. HOSPITAL COURSE AND MANAGEMENT: The initial presentation, emergency department evaluation and the hos pital plan is well described in the History and Physical, see copy of same. SUMMARY: The patient is an unfortunate 61-year-old female with past medical history of recurrent endo metrial cancer with ascites and omental caking. Her initial diagnosis was made in 2010. She had surge ry done at [facility] in [place], then had chemotherapy in [place] for the next several mo nths. The patient had abdominal lymph node removal in 08/2012, but negative pathology for residual ca ncer. She had a recurrence of the cancer in November of 2015 which she she got chemotherapy until Decem 2015 when she could no longer tolerate her treatment and has stopped the chemotherapy since . The patient has had increasing weakness over the past few months. She has had decreased appetite and intake and she has been drinking less and less. She has become weaker and can barely stand. She h as had multiple falls standing up from her chair. She basically stays in a recliner now. She has also had dyspnea. She was found in the workup to be anemic with 11 and 34 hemoglobin and hematocrit. She had acute kidney injury with a BUN and creatinine of 52 and 2.3, which was thought to be partly from dehydration. Previous creatinine was 1.4. The patient was given fluid and the first couple days, 2 da ys, her creatinine stayed the same and then she had increase to 2.5. The patient had further deterior ation of her kidney function to 3.0. The patient's BUN had also leo, she became acidotic, lethargic, and she had consultation with Dr. Prince, from hospice, and she agreed to be admitted to [facility] facility. Her daughter was present almost continuously the last part of her hospitalization and she then became more lethargic, comatose, and on the morning of 10/20/2016 at 0440. The patient was transported to the preferred facility. JOB #: [id number] EXT JOB #:[id number]
== END 2016-10-20 04:40 | disposition expired | DRG 682 ==
LOC: EDUNIT# → SUPCPDRO 03:56 → ED 03:56 → OBSVTOIN 06:08 → MS 06:08
PROVIDERS: ADMIT Internal Medicine; ATTEND Internal Medicine
DX: N17.9 Acute kidney failure, unspecified (principal); R40.20 Unspecified coma; C78.6 Secondary malignant neoplasm of retroperitoneum and peritoneum; R18.0 Malignant ascites; E46 Unspecified protein-calorie malnutrition; R62.7 Adult failure to thrive; E86.0 Dehydration; C54.1 Malignant neoplasm of endometrium; R53.1 Weakness; R59.0 Localized enlarged lymph nodes; B02.9 Zoster without complications; D64.9 Anemia, unspecified; F42.9 Obsessive-compulsive disorder, unspecified; F41.9 Anxiety disorder, unspecified; E66.9 Obesity, unspecified; N18.4 Chronic kidney disease, stage 4 (severe); Z66 Do not resuscitate; Z90.710 Acquired absence of both cervix and uterus; Z68.35 Body mass index [BMI] 35.0-35.9, adult; Z91.81 History of falling; Z92.21 Personal history of antineoplastic chemotherapy
CPT/HCPCS: 36415; 71010; 76700; 80053; 81001; 81003; 83690; 83735; 83880; 84100; 84134; 84443; 85025; 87086; 96374; 96375; 99283; 99284; 99285